=== PATIENT | female | born 1945 | race Caucasian/White ===

== ENCOUNTER 2019-07-22 12:22 | Outpatient (CLI) | payer MEDICARE, OTHER, SELFPAY ==
[2019-07-22 13:07] LABS: Basophils % 0.3 %; Eosinophils # 0.2 10^3/uL (0.0-0.8); Eosinophils % 2.5 %; Hematocrit 41.9 % (37.0-47.0); Hemoglobin 14.3 g/dL (11.5-15.3); Lymphocytes % 46.4 %; Mean Corpuscular HGB Conc 34.1 g/dL (30.0-36.0); Monocytes # 0.3 10^3/uL (0.2-0.9); Monocytes % 4.8 %; Neutrophils % 45.8 %; Nucleated Red Blood Cells % 0 %; Platelet Count 173 10^3/cmm (130-400); Red Blood Count 4.76 10^6/uL (4.1-5.3); Red Cell Distribution Width 12.4 % (12.1-15.1); White Blood Count 6.5 10^3/uL (4.0-10.0)
--- NOTE | 2019-07-22 14:47 | ONC CON_ITS ---
Dr. Barnes New Patient Note Patient: Raiza Holcomb Unit #: [id number]: 1945 Dicatated By: Lorenza Barnes M.D.Date of Visit: Jul 22, 2019 Onc MED New Patient/Consult Referring Physician: Riana Ewing N.P. History of Present Illness: Mrs. Raiza Holcomb, is a 74-year-old female with history of chronic bilateral knee pain and left shoulder pain was recently found to have mild lymphocytosis with normal total white blood cell count as per her labs done on 06/27/2019 which showed white blood count 6.4 hemoglobin 14.9 crit 43.6 platelets 183,000 with a differential neutrophil 36% lymphocytes 55%, peripheral blood smear evaluated by Dr. Luiz goldman on 06/27/2019 showed relative lymphocytosis within normal morphology, dysplastic granulocytes with loss lobulation. Blood cells and platelets morphologically unremarkable, no blasts have seen. Patient denies any night sweats, denies any peripheral lymphadenopathy denies any abdominal fullness denies any recent fever denies any weight loss. Patient said she lives and works so sometime tick bites common other than that she denies any recent flulike symptoms or infections. Denies any skin rash. Denies any postnasal discharge denies any diarrhea or constipation denies any jaundice denies any dysuria or hematuria. Past Medical History: Ms. Holcomb's medical history consists of gastroesophageal reflux disease, history of H-Pylori, history of MRSA, and hypertension. Past Surgical History: Ms. Holcomb's surgical/procedural history consists of left oopherectomy and tubal ligation. Medications: Carvedilol 1 Tablet (of 25 mg) Oral b.i.d., hydroCHLOROthiazide 1 Tablet (of 25 mg) Oral b.i.d., Naproxen 1 Tablet (of 500 mg) Oral b.i.d., Turmeric 2 Tablet (of 500 mg) Oral b.i.d. Allergies: MARGARITA Inhibitors, Penicillins, Singulair, and Sulfa Antibiotics. 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 Ms. Holcomb has never smoked. She has no history of drinking. Ms. Holcomb reports the following support systems: lives alone, lives in own house, supportive family/friends willing to assist with needs, and adequate transportation available for expected visits. Her diet consists of regular meals. She indicates her activity level as: regular exercise. Family History: The family history is unremarkable. Review Of Symptoms: Review of Systems is not available for this patient. Vital Signs: Performed on Jul 22, 2019 14:02: 0, 33.01 (HIGH), 2.00 sq.m, 65.50 in, 97 %, 61 /min, 18 /min, 194/85 mm(hg) (HIGH), 97.6 F (LOW), and 201.4 lbs (HIGH). Performance Status: 0 - Fully active, able to carry on all predisease activities without restrictions. (ECOG) Physical Examination: ENMT - No oral exudates, ulcers, masses, thrush or mucositis. Oropharynx clear. Tongue normal.no cervical or peripheral lymphadenopathy noted, Respiratory - Lungs are clear to auscultation without rhonchi or wheezing, Cardiovascular - Regular rate and rhythm of heart, Abdomen - Non-tender, non-distended,. Good bowel sounds. No guarding or rebound tenderness. No pulsatile masses, Extremities - no edema or rash. Lab/Imaging: Most recent lab results are not available for this patient. Impression: Reactive lymphocytosis with a normal morphology per peripheral blood smear done on 06/27/2019, also showed red cells and platelets morphologically unremarkable, no blasts seen, but dysplastic granulocytes with loss of lobulation Chronic bilateral knee pain and left shoulder pain. Plan: Discussed with patient regarding her labs white blood count 6.5 hemoglobin 14.3 crit 41.9 platelets 173,000 with a normal differential neutrophil 45.8%, lymphocytes 46.4% absolute lymphocytes count 3,000 Clinically, patient is doing well with no B symptoms or peripheral lymphadenopathy. Her repeat CBC done today showed normal hemoglobin and hematocrits and platelet count. Portal white blood count in normal range with normal differential. Etiology of reactive lymphocytosis could be due to transient or self-limiting viral infection or subclinical infection other possibility could be tick bites or medications or underlying chronic inflammation specially patient has bilateral knee and left shoulder pains due to chronic arthritis.considering her age underlying myelodysplasia cannot be ruled out especially when peripheral blood smear shows dysplastic granulocytes,or lymphoproliferative disorder but less likely Today's lab showed resolution of reactive lymphocytosis as differential showed normal values with normal CBC. At this point we will repeat her labs in 3 months with CBC with differential and peripheral blood smear if normal then we'll see her on as-needed basis. Patient was advised in case she has any B symptoms like recommend fevers or night sweats or peripheral lymphadenopathy then she needed to call us otherwise return to clinic in 3 months with CBC with differential and peripheral blood smear. Signed By: Lorenza Barnes M.D. <<Signature on File>>
== END 2019-07-22 12:23 | disposition home or self-care (01) ==
LOC: ONCMED 12:34
PROVIDERS: PCP Nurse Practitioner Family; Referring Provider Nurse Practitioner Family; Visit Provider Internal Medicine Hematology & Oncology
DX: D72.820 Lymphocytosis (symptomatic) (principal); K21.9 Gastro-esophageal reflux disease without esophagitis; I10 Essential (primary) hypertension; M25.562 Pain in left knee; M25.561 Pain in right knee; M25.512 Pain in left shoulder; G89.29 Other chronic pain; Z86.14 Personal history of Methicillin resistant Staphylococcus aureus infection
CPT/HCPCS: 85025; 99203

== ENCOUNTER 2019-10-28 11:28 | Outpatient (CLI) | payer MEDICARE, OTHER, SELFPAY ==
[2019-10-28 12:05] LABS: Basophils % 0.6 %; Eosinophils # 0.2 10^3/uL (0.0-0.8); Eosinophils % 2.2 %; Hemoglobin 14.4 g/dL (11.5-15.3); Lymphocytes # 3.5 10^3/uL (0.8-4.8); Lymphocytes % 50.6 %; Mean Corpuscular HGB Conc 32.7 g/dL (30.0-36.0); Mean Corpuscular Hemoglobin 29.3 pg (28.0-34.0); Mean Corpuscular Volume 89.6 fL (81-99); Mean Platelet Volume 12.3 fL (7.4-10.4); Monocytes # 0.5 10^3/uL (0.2-0.9); Monocytes % 7.2 %; Neutrophils # 2.7 10^3/uL (1.8-7.7); Neutrophils % 39.3 %; Nucleated Red Blood Cells % 0 %; Platelet Count 123 10^3/cmm (130-400); Red Blood Count 4.91 10^6/uL (4.1-5.3); Red Cell Distribution Width 12.5 % (12.1-15.1)
[2019-10-28 12:13] LABS: LAB Peripheral Smear Sent for Review
[2019-10-28 12:27] LABS: Slide Review Slide Review Perform
--- NOTE | 2019-10-28 13:18 | ONC FU_ITS ---
Dr. Barnes follow up note Patient: Raiza Holcomb Unit #: [id number]: 1945 Dicatated By: Lorenza Barnes M.D.Date of Visit:October 28, 2019 Onc Med Follow-up/Prog Note History of Present Illness: Mrs. Raiza Holcomb, is a 74-year-old female with history of chronic bilateral knee pain and left shoulder pain was recently found to have mild lymphocytosis with normal total white blood cell count as per her labs done on 06/27/2019 which showed white blood count 6.4 hemoglobin 14.9 crit 43.6 platelets 183,000 with a differential neutrophil 36% lymphocytes 55%, peripheral blood smear evaluated by Dr. Luiz goldman on 06/27/2019 showed relative lymphocytosis within normal morphology, dysplastic granulocytes with loss lobulation. Blood cells and platelets morphologically unremarkable, no blasts have seen. Patient denies any night sweats, denies any peripheral lymphadenopathy denies any abdominal fullness denies any recent fever denies any weight loss. Patient said she lives and works so sometime tick bites common other than that she denies any recent flulike symptoms or infections. Denies any skin rash. Denies any postnasal discharge denies any diarrhea or constipation denies any jaundice denies any dysuria or hematuria. Came for follow-up, denies any specific complaints, no fever or chills, no nausea or vomiting, no diarrhea constipation, no night sweats, no weight loss, no recurrent fever, no peripheral lymphadenopathy, no abdominal fullness., No petechiae or ecchymosis Medications: Carvedilol 1 Tablet (of 25 mg) Oral b.i.d., hydroCHLOROthiazide 1 Tablet (of 25 mg) Oral b.i.d., Naproxen 1 Tablet (of 500 mg) Oral b.i.d. PRN Allergies: MARGARITA Inhibitors, Penicillins, Singulair, and Sulfa Antibiotics. Review of Systems: Constitutional - Appetite is good and weight is stable. No fever, chills, hot flashes, or night sweats. Energy level is fair, ENMT - No sinus congestion/drainage. No mouth sores. No sore throat or difficulty swallowing, Hematologic/Lymphatic - No abnormal bruising or bleeding, Respiratory - No shortness of breath. No cough. No pleuritic pain or hemoptysis, Cardiovascular - No angina pain. No palpitations, Gastrointestinal - No nausea or vomiting. No heartburn or acid reflux. No diarrhea or constipation. No blood in the stool or black stools, Genitourinary (F) - No dysuria or hematuria. No urinary frequency. No urgency or incontinence, Musculoskeletal - Positive for joint pain, Neurologic - No headache or dizziness. No numbness/paresthesias or other focal neurologic symptoms, Psychiatric - No anxiety or depression. No insomnia. Vital Signs: Performed on October 28, 2019 12:50 Height - 65.50 in Weight - 205.4 lbs (HIGH) BSA - 2.01 sq.m BMI - 33.66 (HIGH) Temperature - 97.8 F (LOW) Pulse - 97 /min Respiration - 16 /min BP - 148/86 mm(hg) (HIGH) O2 Sat - 99 % Pain - 0 Performance Status: 0 - Fully active, able to carry on all predisease activities without restrictions. (ECOG) Physical Examination: ENMT - no mouth sores, no jaundice, no peripheral lymphadenopathy, Respiratory - Lungs are clear, Cardiovascular - Regular rate and rhythm of heart, Abdomen - soft ,bowel sounds present, Extremities - no edema or rash. Lab/Imaging: Test performed on Jul 22, 2019 12:54 WBC 6.5 10 3/uL RBC 4.76 10 6/uL HGB 14.3 g/dL HCT 41.9 % MCV 88.0 fL MCH 30.0 pg MCHC 34.1 g/dL RDW 12.4 % Platelet Count 173 10 3/cmm MPV 11.0 fL Neutrophils 3.0 10 3/uL Lymphocytes 3.0 10 3/uL Monocytes 0.3 10 3/uL Eosinophils 0.2 10 3/uL Basophils 0.0 10 3/uL Neutrophil % 45.8 % Lymphocyte % 46.4 % Monocyte % 4.8 % Eosinophil % 2.5 % Basophils % 0.3 % Impression: Reactive lymphocytosis with a normal morphology per peripheral blood smear done on 06/27/2019, also showed red cells and platelets morphologically unremarkable, no blasts seen, but dysplastic granulocytes with loss of lobulation Chronic bilateral knee pain and left shoulder pain. Plan: Discussed with patient regarding her labs white blood count 7 hemoglobin 14.4 crit 44 platelets 123,000 compared to 173,000 in July 2019 Clinically, patient is doing well with no B symptoms or peripheral lymphadenopathy in her follow-up lab shows white blood count in normal range with differential. With a normal hemoglobin but mild thrombocytopenia, etiology unclear, could be due to low-grade ITP or platelets clumping or transient. We'll monitor return to clinic in 3 months with CBC with differential. Signed By: Lorenza Barnes M.D. <<Signature on File>>
== END 2019-10-28 11:29 | disposition home or self-care (01) ==
LOC: ONCMED 11:28
PROVIDERS: PCP Nurse Practitioner Family; Visit Provider Internal Medicine Hematology & Oncology
DX: D72.820 Lymphocytosis (symptomatic) (principal); G89.29 Other chronic pain; M25.562 Pain in left knee; M25.561 Pain in right knee; M25.512 Pain in left shoulder
CPT/HCPCS: 36415; 85025; G0463

== ENCOUNTER 2020-01-22 08:52 | Outpatient (CLI) | payer MEDICARE, OTHER, SELFPAY ==
[2020-01-22 09:25] LABS: Basophils % 0.6 %; Eosinophils # 0.2 10^3/uL (0.0-0.8); Eosinophils % 2.9 %; Hematocrit 42.3 % (37.0-47.0); Hemoglobin 14.1 g/dL (11.5-15.3); Lymphocytes # 2.8 10^3/uL (0.8-4.8); Lymphocytes % 45.1 %; Mean Corpuscular HGB Conc 33.3 g/dL (30.0-36.0); Mean Corpuscular Hemoglobin 30.1 pg (28.0-34.0); Mean Corpuscular Volume 90.4 fL (81-99); Mean Platelet Volume 11.6 fL (7.4-10.4); Monocytes # 0.4 10^3/uL (0.2-0.9); Monocytes % 6.5 %; Neutrophils # 2.82 10^3/uL (1.8-7.7); Neutrophils % 44.7 %; Nucleated Red Blood Cells % 0 %; Platelet Count 150 10^3/cmm (130-400); Red Blood Count 4.68 10^6/uL (4.1-5.3); Red Cell Distribution Width 12.6 % (12.1-15.1); White Blood Count 6.3 10^3/uL (4.0-10.0)
--- NOTE | 2020-01-22 11:26 | ONC FU_ITS ---
Dr. Barnes follow up note Patient: Raiza Holcomb Unit #: [id number]: 1945 Dicatated By: Lorenza Barnes M.D.Date of Visit:Jan 22, 2020 Onc Med Follow-up/Prog Note History of Present Illness: Mrs. Raiza Holcomb, is a 74-year-old female with history of chronic bilateral knee pain and left shoulder pain was recently found to have mild lymphocytosis with normal total white blood cell count as per her labs done on 06/27/2019 which showed white blood count 6.4 hemoglobin 14.9 crit 43.6 platelets 183,000 with a differential neutrophil 36% lymphocytes 55%, peripheral blood smear evaluated by Dr. Luiz goldman on 06/27/2019 showed relative lymphocytosis within normal morphology, dysplastic granulocytes with loss lobulation. Blood cells and platelets morphologically unremarkable, no blasts have seen. Patient denies any night sweats, denies any peripheral lymphadenopathy denies any abdominal fullness denies any recent fever denies any weight loss. Patient said she lives and works so sometime tick bites common other than that she denies any recent flulike symptoms or infections. Denies any skin rash. Denies any postnasal discharge denies any diarrhea or constipation denies any jaundice denies any dysuria or hematuria. Came for follow-up, denies any specific complaints, no fever chills, no nausea or vomiting, no diarrhea or constipation, no night sweats, no weight loss, no recurrent fever, no peripheral lymphadenopathy, no abdominal fullness Medications: Carvedilol 1 Tablet (of 25 mg) Oral b.i.d., Naproxen 1 Tablet (of 500 mg) Oral b.i.d. PRN Allergies: MARGARITA Inhibitors, Penicillins, Singulair, and Sulfa Antibiotics. Review of Systems: Constitutional - Appetite is good and weight is stable. No fever, chills, hot flashes, or night sweats. Energy level is fair, ENMT - No sinus congestion/drainage. No mouth sores. No sore throat or difficulty swallowing, Hematologic/Lymphatic - No abnormal bruising or bleeding, Respiratory - No shortness of breath. No cough. No pleuritic pain or hemoptysis, Cardiovascular - No angina pain. No palpitations, Gastrointestinal - No nausea or vomiting. No heartburn or acid reflux. No diarrhea or constipation. No blood in the stool or black stools, Genitourinary (F) - No dysuria or hematuria. No urinary frequency. No urgency or incontinence, Musculoskeletal - Positive for joint pain, Neurologic - No headache or dizziness. No numbness/paresthesias or other focal neurologic symptoms, Psychiatric - No anxiety or depression. No insomnia. Vital Signs: Performed on Jan 22, 2020 10:39 Height - 65.50 in Weight - 204.8 lbs (LOW) BSA - 2.01 sq.m BMI - 33.56 (HIGH) Temperature - 97.3 F (LOW) Pulse - 73 /min Respiration - 20 /min BP - 226/99 mm(hg) (HIGH) O2 Sat - 98 % Pain - 0 Performance Status: 0 - Fully active, able to carry on all predisease activities without restrictions. (ECOG) Physical Examination: ENMT - No mouth sores, no thrush, no jaundice, Respiratory - Lungs are clear, Cardiovascular - Regular rate and rhythm of heart, Abdomen - Soft, bowel sounds present, Extremities - No visible edema. Lab/Imaging: Test performed on October 28, 2019 11:35 WBC 7.0 10 3/uL RBC 4.91 10 6/uL HGB 14.4 g/dL HCT 44.0 % MCV 89.6 fL MCH 29.3 pg MCHC 32.7 g/dL RDW 12.5 % Platelet Count 123 10 3/cmm MPV 12.3 fL Neutrophils 2.7 10 3/uL Lymphocytes 3.5 10 3/uL Monocytes 0.5 10 3/uL Eosinophils 0.2 10 3/uL Basophils 0.0 10 3/uL Neutrophil % 39.3 % Lymphocyte % 50.6 % Monocyte % 7.2 % Eosinophil % 2.2 % Basophils % 0.6 % CBC Slide Review Slide Review Perform SLIDE REVIEW AGREES WITH AUTOMATED RESULTS ST Impression: Reactive lymphocytosis with a normal morphology per peripheral blood smear done on 06/27/2019, also showed red cells and platelets morphologically unremarkable, no blasts seen, but dysplastic granulocytes with loss of lobulation Chronic bilateral knee pain and left shoulder pain. Plan: Discussed with patient regarding her labs white blood count 6.3 hemoglobin 14.1 crit 42.3 platelets 150,000, with a normal differential Clinically, patient is doing well with no B signs symptoms, no peripheral lymphadenopathy, no organomegaly and her follow-up CBC shows normalization of mild thrombocytopenia and now with a normal CBC including white blood count and differential. No further work-up from hematological point of view but will monitor return to clinic in 6-month with CBC with differential if stay within normal range then will see her on as-needed basis. Signed By: Lorenza Barnes M.D. <<Signature on File>>
== END 2020-01-22 08:53 | disposition home or self-care (01) ==
LOC: ONCMED 08:56
PROVIDERS: PCP Nurse Practitioner Family; Visit Provider Internal Medicine Hematology & Oncology
DX: D72.820 Lymphocytosis (symptomatic) (principal); M25.562 Pain in left knee; M25.561 Pain in right knee; M25.512 Pain in left shoulder
CPT/HCPCS: 36415; 85025; G0463

== ENCOUNTER 2020-08-27 07:48 | Outpatient (CLI) | payer MEDICARE, OTHER, SELFPAY ==
[2020-08-27 08:39] LABS: Basophils # 0.1 10^3/uL (0.0-0.1); Basophils % 1.2 %; Eosinophils # 0.2 10^3/uL (0.0-0.8); Eosinophils % 2.8 %; Hematocrit 42.9 % (37.0-47.0); Hemoglobin 14.5 g/dL (11.5-15.3); Lymphocytes # 2.7 10^3/uL (0.8-4.8); Lymphocytes % 38.9 %; Mean Corpuscular HGB Conc 33.8 g/dL (30.0-36.0); Mean Corpuscular Hemoglobin 30.1 pg (28.0-34.0); Mean Platelet Volume 11.6 fL (7.4-10.4); Monocytes # 0.6 10^3/uL (0.2-0.9); Monocytes % 8.5 %; Neutrophils # 3.31 10^3/uL (1.8-7.7); Neutrophils % 48.5 %; Nucleated Red Blood Cells % 0 %; Platelet Count 186 10^3/cmm (130-400); Red Blood Count 4.82 10^6/uL (4.1-5.3); Red Cell Distribution Width 12.6 % (12.1-15.1); White Blood Count 6.8 10^3/uL (4.0-10.0)
--- NOTE | 2020-08-27 09:52 | ONC FU_ITS ---
Dr. Barnes follow up note Patient: Raiza Holcomb Unit #: [id number]: 1945 Dicatated By: Lorenza Barnes M.D.Date of Visit:Aug 27, 2020 Onc Med Follow-up/Prog Note History of Present Illness: Mrs. Raiza Holcomb, is a 75-year-old female with history of chronic bilateral knee pain and left shoulder pain was recently found to have mild lymphocytosis with normal total white blood cell count as per her labs done on 06/27/2019 which showed white blood count 6.4 hemoglobin 14.9 crit 43.6 platelets 183,000 with a differential neutrophil 36% lymphocytes 55%, peripheral blood smear evaluated by Dr. Luiz goldman on 06/27/2019 showed relative lymphocytosis within normal morphology, dysplastic granulocytes with loss lobulation. Blood cells and platelets morphologically unremarkable, no blasts have seen. Patient denies any night sweats, denies any peripheral lymphadenopathy denies any abdominal fullness denies any recent fever denies any weight loss. Patient said she lives and works so sometime tick bites common other than that she denies any recent flulike symptoms or infections. Denies any skin rash. Denies any postnasal discharge denies any diarrhea or constipation denies any jaundice denies any dysuria or hematuria. Came for follow-up, denies any specific complaints, no fever chills, no nausea or vomiting, no diarrhea or constipation, no night sweats, no weight loss, no recurrent fever, no peripheral lymphadenopathy, no abdominal fullness Medications: Carvedilol 1 Tablet (of 25 mg) Oral b.i.d., Naproxen 1 Tablet (of 500 mg) Oral b.i.d. PRN Allergies: MARGARITA Inhibitors, Penicillins, Singulair, and Sulfa Antibiotics. Review of Systems: Review of Systems is not available for this patient. Vital Signs: Performed on Aug 27, 2020 09:33 Height - 65.50 in Weight - 201.4 lbs (LOW) BSA - 2.00 sq.m BMI - 33.01 (HIGH) Temperature - 97.3 F (LOW) Pulse - 65 /min Respiration - 18 /min BP - 165/82 mm(hg) (HIGH) O2 Sat - 96 % Pain - 0 Performance Status: 0 - Fully active, able to carry on all predisease activities without restrictions. (ECOG) Physical Examination: ENMT - No mouth sores, no thrush, no jaundice no lymphadenopathy, Respiratory - Lungs are clear to auscultation, Cardiovascular - Regular rate and rhythm of heart, Abdomen - Soft, bowel sounds present, Extremities - No visible edema. Lab/Imaging: Most recent lab results are not available for this patient. Impression: Reactive lymphocytosis with a normal morphology per peripheral blood smear done on 06/27/2019, also showed red cells and platelets morphologically unremarkable, no blasts seen, but dysplastic granulocytes with loss of lobulation Chronic bilateral knee pain and left shoulder pain. Plan: Discussed with patient regarding her labs white blood count 6.8 hemoglobin 14.5 hematocrit 42.9 platelets 186,000 with normal differential Clinically, patient doing well with no new signs symptom, no B symptoms, her follow-up CBC is within normal range with a normal differential, We will follow her on as-needed basis Signed By: Lorenza Barnes M.D. <<Signature on File>>
== END 2020-08-27 07:49 | disposition home or self-care (01) ==
LOC: ONCMED 07:54
PROVIDERS: PCP Nurse Practitioner Family; Visit Provider Internal Medicine Hematology & Oncology
DX: D72.820 Lymphocytosis (symptomatic) (principal); M25.562 Pain in left knee; M25.561 Pain in right knee; M25.512 Pain in left shoulder
CPT/HCPCS: 36415; 85025; G0463